=== PATIENT | male | born 1990 | race Caucasian/White ===

== ENCOUNTER 2018-07-31 13:02 | Emergency (ER) | payer OTHER ==
[~2018-07-31] VITALS: Ht 170.2 cm; Wt 88.5 kg
[2018-07-31] MEDS ORDERED: NEURONTIN300 MG PO (13:35)
[2018-07-31] MEDS ORDERED: ACID REDUCER10 MG PO (13:35)
[2018-07-31] MEDS ORDERED: DIVALPROEX SOD500 M1 PO (13:37)
[2018-07-31] MEDS ORDERED: LIDOCAINE PAIN1 EACH TP (13:38)
[2018-07-31] MEDS ORDERED: ATENOLOL25 MG PO (13:39)
[2018-07-31] MEDS ORDERED: EFFEXOR XR75 MG PO (13:40)
[2018-07-31] MEDS ORDERED: CHLORPROMAZINE100 MG PO (13:41)
[2018-07-31] MEDS ORDERED: LIPITOR20 MG PO (13:42)
[2018-07-31] MEDS ORDERED: FENOFIBRATE54 MG PO (13:42)
[2018-07-31] MEDS ORDERED: NALTREXONE HCL50 MG PO (13:43)
--- OUTSIDE RECORDS SUMMARY | 2018-08-01 14:20 | XMS ---
PreManage Notification: THOMPSON ROGEL Security Clinical Laboratory Assistant Events No recent Security Events currently on file CRITERIA MET - 6 ED Visits in 6 Months - [facility] - Has [facility] CARE PROVIDERS Grey Prince 07/23/2015-Current PHONE: [phone] Shannon Comprehensive Ophthalmologist/Residential Program Director Current PHONE: [phone] [facility] 02/15/2018-[facility] PHONE: [phone] PAMELLA Lara [facility] 06/09/2018-Current PHONE: Unknown DELMER CAN [facility] 06/09/2018-Current PHONE: [phone] KAYKAY BARRY Primary Care 04/01/2018-[facility] MEDICAL FAROOQ PHONE: [phone] [facility] Provider 02/15/2018-[facility] MENTAL HEALTH PHONE: [phone] DELMER CAN [facility] Current PHONE: Unknown BRIDGER WINTER [facility] Current PHONE: Unknown [facility] Primary Care 08/06/2017-[facility] PRIMARY CARE PHONE: Unknown Grey Prince [facility] 07/23/2015-Current PHONE: [phone] [facility] Current PHONE: [phone] CONCEPCION SPARKS Primary Care Current PHONE: Unknown [facility] 07/26/2015-02/06/2015 [facility] PHONE: [phone] Delmer Can [facility] Current PHONE: Unknown Guidelines Source: [facility] Guidelines Date: 06/03/2018 Care Recommendation: Mr. 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 e., be extremely agitated with no identifiable cause, or be extremely calm during significant safety concerns or psychosis, etc.).\T\nbsp; He is a participant in the [facility] ACT program.\T\nbsp; Please call them immediately when he checks into an ER: [phone], press 0 and ask for the ACT career and technology education teachersound effects person.\T\nbsp;\T\nbsp; Current medications prescribed by CLARENCE Orellana: Zyprexa 5mg 2x/day Zyprexa 20mg at bedtime Zyprexa 15mg at bedtime Klonopin 1mg 2x/daily PRN Depakote 500mg DR/EC 2-3 tablets by mouth daily as directed Prozac 10mg daily Prozac 20mg every morning E.D. VISIT COUNT (12 MO.) [address] [place] [address] 3 [facility] 12 [facility] 4 [place] 1 ESMER Barrientos TOTAL 31 NOTE: Visits indicate total known visits. ED/UCC VISIT TRACKING (12 MO.) 07/31/2018 13:02 ESMER Gallardo [place] TYPE: Emergency COMPLAINT: - MEDICAL CLEARANCE 06/11/2018 18:56 [facility] TYPE: Psychiatric Emergency DIAGNOSES: - Schizoaffective - Undifferentiated schizophrenia 06/04/2018 18:58 [facility] TYPE: Emergency COMPLAINT: - Cough - Alcohol abuse with intoxication, unspecified DIAGNOSES: 1. Cough 2. Alcohol abuse with intoxication, unspecified 06/03/2018 12:26 [facility] [place] TYPE: Emergency COMPLAINT: - Procedure and treatment not carried out due to patient leaving prior to being seen by health care provider DIAGNOSES: 1. Procedure and treatment not carried out due to patient leaving prior to being seen by health care provider 06/03/2018 00:33 [facility] [place] TYPE: Emergency COMPLAINT: - Delusional disorders DIAGNOSES: 1. Schizophrenia, unspecified 06/02/2018 10:56 [facility] TYPE: Emergency COMPLAINT: - FLU LIKE SYMPTOMS - Other malaise - Headache DIAGNOSES: 1. Viral infection, unspecified 05/30/2018 16:53 [facility] TYPE: Emergency COMPLAINT: - INGESTION OF BOTTLE OF ALEVE - Poisoning by propionic acid derivatives, intentional self-harm, initial encounter DIAGNOSES: 1. Poisoning by propionic acid derivatives, intentional self-harm, initial encounter 2. Suicidal ideations 3. Tachycardia, unspecified 4. Essential (primary) hypertension 5. Bipolar disorder, unspecified 6. Schizophrenia, unspecified 7. Personal history of self-harm 8. Urinary tract infection, site not specified 04/22/2018 12:08 [facility] [place] TYPE: Emergency COMPLAINT: - ALTERED MENTAL STATUS 03/06/2018 07:31 [facility] [place] TYPE: Psychiatric Emergency DIAGNOSES: - Schizophrenia, unspecified - SI; Hallucinations 03/05/2018 21:25 [facility] TYPE: Emergency DIAGNOSES: 92997. STOMACH PAIN 03/05/2018 17:45 [facility] TYPE: Emergency DIAGNOSES: 34280. Other acute postprocedural pain 02/27/2018 21:05 [facility] [place] TYPE: Psychiatric Emergency DIAGNOSES: - Opioid dependence, uncomplicated - Schizophrenia, unspecified - [place] Effective 02/27/2018 14:21 [facility] [place] TYPE: Emergency COMPLAINT: - STITCHES UNDONE POST SURGERY 02/25/2018 15:21 [facility] TYPE: Psychiatric Emergency DIAGNOSES: - Schizophrenia, unspecified 02/13/2018 17:38 [facility] TYPE: Emergency DIAGNOSES: 75826. trauma 80323. Undifferentiated schizophrenia 11266. Complete traumatic amputation of penis, initial encounter 02/13/2018 16:08 [facility] Sheryl Angelo [place] TYPE: Emergency COMPLAINT: - MEDICAL 02/03/2018 16:47 [facility] Sheryl Angel[place] TYPE: Emergency COMPLAINT: - CP 01/28/2018 19:36 [facility] MarleenJassi [place] TYPE: Emergency COMPLAINT: - KNEE PAIN 01/26/2018 [facility] [place] [facility] COMPLAINT: - MEDICAL 01/10/2018 01:39 [facility] MarleenJasis [place] TYPE: Emergency COMPLAINT: - self harm Plus 11 More Visits INPATIENT VISIT TRACKING (12 MO.) 06/11/2018 18:56 [facility] [place] TYPE: Psychiatric Services DIAGNOSES: - Undifferentiated schizophrenia 03/06/2018 07:31 [facility] [place] TYPE: Psychiatric Services DIAGNOSES: - Schizophrenia, unspecified 02/27/2018 21:05 [facility] [place] TYPE: Psychiatric Services DIAGNOSES: - Opioid dependence, uncomplicated - Schizophrenia, unspecified 02/25/2018 15:21 [facility] [place] TYPE: Psychiatric Services DIAGNOSES: - Schizophrenia, unspecified 02/13/2018 17:38 [facility] TYPE: Urology DIAGNOSES: 32459. Complete traumatic amputation of penis, subsequent encounter 15729. Undifferentiated schizophrenia 06334. Complete traumatic amputation of penis, initial encounter [email or web address]
== END 2018-08-01 14:02 | disposition home or self-care (01) ==
LOC: ED 13:02
DX: Z04.6 Encounter for general psychiatric examination, requested by authority (principal); F17.200 Nicotine dependence, unspecified, uncomplicated; Z79.899 Other long term (current) drug therapy; F31.9 Bipolar disorder, unspecified; F20.9 Schizophrenia, unspecified
CPT/HCPCS: 80053; 80176; 81001; 84443; 85025; 99283; G0480

== ENCOUNTER 2018-08-02 14:39 | Emergency (ER) | payer OTHER ==
[~2018-08-02] VITALS: Ht 170.2 cm; Wt 88.5 kg
[~2018-08-02 14:39] MED LIST: ACID REDUCER10 MG PO; ATENOLOL25 MG PO; CHLORPROMAZINE100 MG PO; DIVALPROEX SOD500 M1 PO; EFFEXOR XR75 MG PO; FENOFIBRATE54 MG PO; LIDOCAINE PAIN1 EACH TP; LIPITOR20 MG PO; NALTREXONE HCL50 MG PO; NEURONTIN300 MG PO
--- OUTSIDE RECORDS SUMMARY | 2018-08-02 14:42 | XMS ---
PreManage Notification: BIB ROGEL Security Research Program Internship Events No recent Security Events currently on file CRITERIA MET - 6 ED Visits in 6 Months - [facility] - Has Care Guidelines - [facility] - 2 Visits in 30 Days CARE PROVIDERS Grey Prince 07/23/2015-Current PHONE: [phone] Shannon Insulation Cutter And Former/Front Desk Person Current PHONE: [phone] RENETTA MUÑOZ 02/15/2018-[facility] PHONE: [phone] PAEMLLA Lara [facility] 06/09/2018-Current PHONE: Unknown SINTIA CAN Primary Care 06/09/2018-Current PHONE: [phone] KAYKAY BARRY Primary Care 04/01/2018-[facility] MEDICAL PLA PHONE: [phone] [facility] Health Provider 02/15/2018-[facility] MENTAL HEALTH PHONE: [phone] SINTIA CAN [facility] Current PHONE: Unknown BRIDGER WINTER Primary Care Current PHONE: Unknown [facility] Primary Care 08/06/2017-[facility] PRIMARY CARE PHONE: Unknown Grey Prince [facility] 07/23/2015-Current PHONE: [phone] [facility] Current PHONE: [phone] CONCEPCION SPARKS Primary Care Current PHONE: Unknown [facility] 07/26/2015-02/06/2015 [facility] PHONE: [phone] Sintia Can Primary Care Current PHONE: Unknown Guidelines Source: [facility] Guidelines Date: 06/03/2018 Care Recommendation: Mr. Rogel receives outpatient mental health and medication services at [facility] ([facility]).\T\nbsp; To reach the provider, please contact [facility] at .\T\nbsp; Please fax any discharge medication lists and instructions to .\T\nbsp; Our agency does not have access to [facility], and this information is critical for patient [...] etc.).\T\nbsp; He is a participant in the [facility] ACT program.\T\nbsp; Please call them immediately when he checks into an ER: [phone], press 0 and ask for the ACT graduation coachpersonalization specialist.\T\nbsp;\T\nbsp; Current medications prescribed by KALLIE OrellanaP: Zyprexa 5mg 2x/day Zyprexa 20mg at bedtime Zyprexa 15mg at bedtime Klonopin 1mg 2x/daily PRN Depakote 500mg DR/EC 2-3 tablets by mouth daily as directed Prozac 10mg daily Prozac 20mg every morning E.D. VISIT COUNT (12 MO.) 11 [facility] [address] 4 [place] 2 ESMER Barrientos TOTAL 32 NOTE: Visits indicate total known visits. ED/UCC VISIT TRACKING (12 MO.) 08/02/2018 14:40 [facility] [place] TYPE: Emergency COMPLAINT: - SUN BURN 07/31/2018 13:02 ESMER [place] TYPE: Emergency COMPLAINT: - MEDICAL CLEARANCE 06/11/2018 18:56 [facility] [place] MACIEJ TYPE: Psychiatric Emergency DIAGNOSES: - Schizoaffective - Undifferentiated schizophrenia 06/04/2018 18:58 [facility] TYPE: Emergency COMPLAINT: - Cough - Alcohol abuse with intoxication, unspecified DIAGNOSES: 1. Cough 2. Alcohol abuse with intoxication, unspecified 06/03/2018 12:26 [facility] [place] TYPE: Emergency COMPLAINT: - Procedure and treatment not carried out due to patient leaving prior to being seen by health care provider DIAGNOSES: 1. Procedure and treatment not carried out due to patient leaving prior to being seen by health care provider 06/03/2018 00:33 [facility] [place] TYPE: Emergency COMPLAINT: - Delusional disorders DIAGNOSES: 1. Schizophrenia, unspecified 06/02/2018 10:56 [facility] [place] TYPE: Emergency COMPLAINT: - FLU LIKE SYMPTOMS - Other malaise - Headache DIAGNOSES: 1. Viral infection, unspecified 05/30/2018 16:53 [facility] [place] TYPE: Emergency COMPLAINT: - INGESTION OF BOTTLE OF ALEVE - Poisoning by propionic acid derivatives, intentional self-harm, initial encounter DIAGNOSES: 1. Poisoning by propionic acid derivatives, intentional self-harm, initial encounter 2. Suicidal ideations 3. Tachycardia, unspecified 4. Essential (primary) hypertension 5. Bipolar disorder, unspecified 6. Schizophrenia, unspecified 7. Personal history of self-harm 8. Urinary tract infection, site not specified 04/22/2018 12:08 [facility] [place] TYPE: Emergency COMPLAINT: - ALTERED MENTAL STATUS 03/06/2018 07:31 [facility] TYPE: Psychiatric Emergency DIAGNOSES: - Schizophrenia, unspecified - SI; Hallucinations 03/05/2018 21:25 [facility] TYPE: Emergency DIAGNOSES: 86323. STOMACH PAIN 03/05/2018 17:45 [facility] TYPE: Emergency DIAGNOSES: 74548. Other acute postprocedural pain 02/27/2018 21:05 [facility] [place] TYPE: Psychiatric Emergency DIAGNOSES: - Opioid dependence, uncomplicated - Schizophrenia, unspecified - [place] Effective 02/27/2018 14:21 [facility] TYPE: Emergency COMPLAINT: - STITCHES UNDONE POST SURGERY 02/25/2018 15:21 [facility] [place] TYPE: Psychiatric Emergency DIAGNOSES: - Schizophrenia, unspecified 02/13/2018 17:38 [facility] TYPE: Emergency DIAGNOSES: 61272. trauma 15037. Undifferentiated schizophrenia 90057. Complete traumatic amputation of penis, initial encounter 02/13/2018 16:08 [facility] Sheryl Angelo [place] TYPE: Emergency COMPLAINT: - MEDICAL 02/03/2018 16:47 [facility] MarleenJassi [place] TYPE: Emergency COMPLAINT: - CP 01/28/2018 19:36 [facility] MarleenJassi [place] TYPE: Emergency COMPLAINT: - KNEE PAIN 01/26/2018 16:41 [facility] MarleenJassi [place] TYPE: Emergency COMPLAINT: - MEDICAL Plus 12 More Visits INPATIENT VISIT TRACKING (12 MO.) 06/11/2018 18:56 [place] TYPE: Psychiatric Services DIAGNOSES: - Undifferentiated schizophrenia 03/06/2018 07:31 [facility] [place] TYPE: Psychiatric Services DIAGNOSES: - Schizophrenia, unspecified 02/27/2018 21:05 [facility] [place] TYPE: Psychiatric Services DIAGNOSES: - Opioid dependence, uncomplicated - Schizophrenia, unspecified 02/25/2018 15:21 [facility] [place] TYPE: Psychiatric Services DIAGNOSES: - Schizophrenia, unspecified 02/13/2018 17:38 [facility] TYPE: Urology DIAGNOSES: 26352. Complete traumatic amputation of penis, subsequent encounter . Undifferentiated schizophrenia . Complete traumatic amputation of penis, initial encounter [email or web address]
== END 2018-08-02 16:04 | disposition home or self-care (01) ==
LOC: ED 14:39
DX: L55.0 Sunburn of first degree (principal); F25.9 Schizoaffective disorder, unspecified; F31.9 Bipolar disorder, unspecified; F17.200 Nicotine dependence, unspecified, uncomplicated; Z79.899 Other long term (current) drug therapy
CPT/HCPCS: 99282